=== PATIENT | female | born 1990 | race Caucasian/White ===

== ENCOUNTER 2024-07-24 12:57 | Outpatient (CLI) | payer OTHER, SELFPAY ==
--- NOTE | 2024-07-24 13:00 | CRLHL7_ITS ---
For Patients: As a result of the Century Cures Act, medical imaging exams and procedure reports are released immediately into your electronic medical record. You may view this report before your referring provider. If you have questions, please contact your health care provider. INDICATION: Dating and viability. LMP 05/29/2024. COMPARISON: None. TECHNIQUE: Real-time bowers-scale imaging of the pelvis was performed. FINDINGS: Sonographic imaging demonstrates a single living intrauterine gestation. The embryo has a regular cardiac rate measuring 154 beats per minute. The embryo`s crown-rump length measures 1.6 cm which corresponds to a gestational age of 8 weeks 0 days with sonographic due date 03/05/2025. There is a normal-appearing yolk sac. The placenta has not yet developed. No evidence of a perigestational hemorrhage. The right ovary measures 3.0 x 2.9 x 1.7 cm and the left ovary measures 3.8 x 2.7 x 2.1 cm. There is a 1.9 cm hypoechoic lesion in the left ovary which likely represents a corpus luteum. No free fluid in the pelvic cul-de-sac. IMPRESSION: 1. Single living intrauterine gestation corresponding to an ultrasound gestational age of 8 weeks 0 days with sonographic due date 03/05/2025. 2. The clinical gestational age by LMP is 8 weeks 0 days. Dictated by Amy Roberson MD @ 07/25/2024 2:11:41 AM (Electronically Signed)
== END 2024-07-24 12:58 | disposition home or self-care (01) ==
PROVIDERS: Visit Provider Physician Assistant
DX: Z34.91 Encounter for supervision of normal pregnancy, unspecified, first trimester (principal); Z3A.08 8 weeks gestation of pregnancy
CPT/HCPCS: 76817; 86703; 86706; 86803; 86850; 86900; 86901; 87086; 87340; 87491; 87591

== ENCOUNTER 2024-07-24 13:58 | Outpatient (CLI) | payer OTHER, SELFPAY ==
[2024-07-24 21:40] LABS: Chlamydia DNA Amplified* NOT DETECTED (No Detected); GC DNA Amplified* NOT DETECTED (No Detected)
== END 2024-07-24 13:59 | disposition home or self-care (01) ==
PROVIDERS: Visit Provider Physician Assistant
DX: Z34.91 Encounter for supervision of normal pregnancy, unspecified, first trimester (principal); Z3A.08 8 weeks gestation of pregnancy
CPT/HCPCS: 86592; 86703; 86704; 86706; 86762; 86787; 86803; 86850; 86900; 86901; 87086; 87340; 87491; 87591

== ENCOUNTER 2024-10-18 12:47 | Outpatient (CLI) | payer OTHER, SELFPAY ==
--- NOTE | 2024-10-18 13:00 | CRLHL7_ITS ---
For Patients: As a result of the Century Cures Act, medical imaging exams and procedure reports are released immediately into your electronic medical record. You may view this report before your referring provider. If you have questions, please contact your health care provider. INDICATION: Evaluate anatomy. COMPARISON: 07/24/2024 TECHNIQUE: Real time bowers scale imaging of the fetus was performed as well as color Doppler analysis of the umbilical vessels. FINDINGS: Sonographic imaging demonstrates a single living intrauterine gestation. Fetus demonstrates a regular cardiac rate of 157 beats per minute. Fetus has a vertex position. The placenta lies anteriorly without evidence of placenta previa. Edge of the placenta is located 4.4 cm from the internal cervical os. Amniotic fluid volume appears normal. Single deepest vertical pocket: 5.1 cm. The cervix is closed and measures 4.2 cm in length. The composite ultrasound gestational age is calculated at 21 weeks 0 days with an estimated sonographic due date of 02/28/2025. The estimated weight is 408 grams which lies at the 91st %. The following biometric measurements were obtained: Biparietal diameter: 4.9 cm/20 weeks 6 days 73rd% Head circumference: 17.8 cm/20 weeks 2 days 42nd% Abdominal circumference: 16.3 cm/21 weeks 2 day 78th% Femur length: 3.6 cm/21 weeks 2 days 78th% The HC/AC ratio measures: 1.10 range (1.06-1.25) On anatomic survey, there is a normal appearance of the cerebral ventricles, cavum septi pellucidi, cisterna magna and cerebellum. The nose and lips appear normal. Incomplete visualization of the profile. The cervical, thoracic and lumbar spine are well visualized and appear normal. There is a normal four-chamber heart view and the left and right ventricular outflow tracts appear normal. The diaphragm and stomach appear normal. The kidneys and bladder also appear normal. There is a normal three-vessel cord and there is a marginal cord insertion site into the placenta located 1.7 cm from the placental edge. The four extremities appear normal. Possible echogenic bowel. Placental rivero adjacent to the placental cord insertion. IMPRESSION: Sonographic gestational age 21 weeks 0 days and sonographic due date of 02/28/2025. Sonographic age 5 days ahead of the clinical age. Estimated weight 91st percentile. Abdominal circumference 78th percentile. Incomplete visualization of the profile. Possible echogenic bowel. Short term follow-up or level 2 ultrasound recommended. Remainder of the anatomic survey normal. Marginal cord insertion located 1.7 cm from the placental edge. Placental rivero noted adjacent to the cord insertion. Dictated by Elías Dunbar MD @ 10/19/2024 12:12:12 PM (Electronically Signed)
== END 2024-10-18 12:48 | disposition home or self-care (01) ==
LOC: US 12:48
PROVIDERS: Visit Provider Advanced Practice Midwife
DX: Z34.92 Encounter for supervision of normal pregnancy, unspecified, second trimester (principal); Z3A.21 21 weeks gestation of pregnancy
CPT/HCPCS: 76805

== ENCOUNTER 2024-12-12 11:16 | Outpatient (CLI) | payer OTHER, SELFPAY | END 2024-12-12 11:17 | disposition home or self-care (01) | LOC: NFLDREF 12-17 02:51 | PROVIDERS: Visit Provider Advanced Practice Midwife | DX: Z34.03 Encounter for supervision of normal first pregnancy, third trimester (principal) | CPT/HCPCS: 86592 ==

== ENCOUNTER 2025-02-13 11:32 | Outpatient (CLI) | payer OTHER, SELFPAY | END 2025-02-13 11:33 | disposition home or self-care (01) | LOC: NFLDREF 02-15 09:46 | PROVIDERS: Visit Provider Advanced Practice Midwife | DX: Z34.03 Encounter for supervision of normal first pregnancy, third trimester (principal); Z3A.37 37 weeks gestation of pregnancy | CPT/HCPCS: 87081; 87653 ==

== ENCOUNTER 2025-03-06 10:53 | Outpatient (CLI) | payer OTHER, SELFPAY | END 2025-03-06 10:54 | disposition home or self-care (01) | LOC: NFLDREF 03-11 03:02 | PROVIDERS: Visit Provider Advanced Practice Midwife | DX: O48.0 Post-term pregnancy (principal); Z3A.40 40 weeks gestation of pregnancy | CPT/HCPCS: 87081; 87653 ==

== ENCOUNTER 2025-03-12 11:17 | Outpatient (CLI) | payer OTHER, SELFPAY ==
--- NOTE | 2025-03-12 11:15 | CRLHL7_ITS ---
For Patients: As a result of the Cures Act, medical imaging exams and procedure reports are released immediately into your electronic medical record. You may view this report before your referring provider. If you have questions, please contact your health care provider. OBSTETRICAL ULTRASOUND ??? BIOPHYSICAL PROFILE, 03/12/2025 INDICATION: Post-term . Biophysical profile. CLINICAL HISTORY: LEIGH by LMP: 03/05/2025 Gestational Age: 41 weeks 0 days COMPARISON: 10/18/2024 TECHNIQUE: Real-time bowers-scale imaging of the fetus was performed transabdominal. FINDINGS: Fetus: Single Cervix: Not visualized positioning: Vertex Amniotic Fluid: 7.1 cm SDP BIOPHYSICAL PROFILE: Gross body movements: 2 tone: 2 Respiratory activity: 2 Amniotic fluid SDP: 2 Total score: 8 Placenta technique: Transabdominal Placenta position: Anterior heart rate: 148 bpm COMMENTS: Incidental hydrocele seen on fetus. IMPRESSION: Normal biophysical profile score of 8/8. ELÍAS GRUBBS M.D. Diagnostic Radiologist [email or web address] Transcribed: 5:[address]/Dictated by: Elías Grubbs MD @ 03/12/2025 3:22:00 PM (Electronically Signed)
== END 2025-03-12 11:18 | disposition home or self-care (01) ==
LOC: US 11:18
PROVIDERS: Visit Provider Advanced Practice Midwife
DX: O48.0 Post-term pregnancy (principal); Z3A.41 41 weeks gestation of pregnancy
CPT/HCPCS: 76819

== ENCOUNTER 2025-03-15 11:00 | Outpatient (CLI) | payer OTHER, SELFPAY | END 2025-03-15 11:01 | disposition home or self-care (01) | LOC: NFLDREF 03-19 18:06 | PROVIDERS: Visit Provider Midwife | DX: O48.0 Post-term pregnancy (principal); Z3A.41 41 weeks gestation of pregnancy | CPT/HCPCS: 87081; 87653 ==

== ENCOUNTER 2025-03-15 23:18 | Inpatient (IN) | payer OTHER, SELFPAY ==
[2025-03-15 21:46] VITALS: BMI 31.8
[2025-03-15 21:53] VITALS: PULSE 96; O2SAT 98
[2025-03-15 21:54] VITALS: BP 142/88; PULSE 87
[2025-03-15 22:22] VITALS: BP 133/79; PULSE 90
--- NOTE | 2025-03-15 22:59 | W.PM.LDBA ---
Subjective History of Present Illness Narrative: Patient is being admitted to Labor and Delivery for SROM at term of thin mec. She is a 35 year old at 41 3/7 weeks gestation. Her full history and physical was dictated by Amalia John on 02/20/25. Please see this for details. SROM at 1700 clear fluid with green tint noted at 1900. Contractions have not picked up at all. Good movement. Specific Issues/Plans G1 P 0 Partner: Shar?It is a boy! H&P completed by Whitney John CNM on 02/20/25? ? #echogenic bowel: MFM consult/Lev 2 f/u referral sent 10/18. Declines US follow-up, aware of risk Did have 3D/4D US and they did not see anything on bowel, she has low concern for this Offered genetic screening: declines #Marginal cord insertion (EFW at 20 weeks, 91%). 1.7cm so not marginal per definition Growth US at 28: declines Growth US at 34: planning at this time; 3/ discussed via phone and patient actually elects to decline # Hx abnormal paps. Normal in 2023, due in 2026. # Hx migraines # Low plts at 28 weeks, 134 Repeat CBC at 34 weeks and on admit 01/16/25-134 # Hydrocele noted on last US. Not discussed with pt. Please inform her on admit for IOL. ? Imaging:? 1st trimester: 07/24/2024: SLIUP consisted with dating?? Anatomy scan: 10/18/2024: US shows echogenic bowel, marginal cord insertion, hypoechoic area in placenta adjacent to cord insertion site and profile was not visualized. Will schedule in the new year when deductible will be lower since thay are not covering any US so far. Others: NA? ? COVID:?? Flu:??? Tdap:? RSV:?declines 32wk Mental Health:? 34wk hgb:12.3 on 01/16/25 ? OB - Problem Based A/P Additional Plan (1) SROM (spontaneous rupture of membranes): Status: Acute (2) Thin meconium stained amniotic fluid: Status: Acute (3) Post term at 41 weeks gestation: Status: Acute (4) Low platelet count: Status: Acute (5) Echogenic bowel of fetus on ultrasound: Status: Acute (6) Marginal insertion of umbilical cord affecting management of mother: Problem details: 1.7cm from OS. Not marginal. Status: Acute Plan ASSESSMENT:?? 35 at 41 3/7 weeks gestation?? complicated by:??marginal cord insertion, echogenic bowel that was later not seen. low platelets 134 Labor type: SROM augmented, Thin mec, post dates, not yet in labor?? Category 1 FHR pattern.??? Labor complicated by: thin mec?? GBS negative ?? PLAN:?? 1. Routine intrapartum cares as ordered. Reviewed increased risk of infection with ROM, thin meconium causes, recommendation to augment labor since it has already been 6 hours after ROM with labor onset. Recommendation for some ripening based on exam to include oral misoprostol reviewed with progression to pitocin prn. Hortensia and Shra agree to oral misoprostol and have no further questions at this time. 2. Monitoring per policy, continuous? 3. Planning unmedicated . Desires water . Consent signed. Hep C negative. Candidate for analgesia of choice.??? 4. Patient encouraged to reposition and ambulate to promote physiologic labor and .??? 5. IV site Saline lock, CBC on admit 6. RNs instructed to NOT check patient's cervix prior to misoprostol dose due to increased risk of infection. They may check if patient is having painful contractions, but should defer them when not medically necessary whenever able to safely do so. 7. Anticipate ? Delivery/Labor/Induction Plan Plan: induction Induction method: per misoprostol protocol OB Exam Physical Exam Vital signs: Pulse BP Pulse Ox 90 133/79 98 03/15/25 22:22 03/15/25 22:22 03/15/25 21:53 Narrative: Vitals Reviewed Constitutional:? Alert and oriented x3 HEENT:? Normocephalic, atraumatic Neck:? Supple Lungs:? Clear to auscultation bilaterally Heart:? Regular rate and rhythm, no murmur, rub or gallop Abdomen:? Soft, nontender, and gravid. Vertex by Douglas's, confirmed with cervical exam. Extremities:? No edema or erythema Cervix: deferred due to ROM and and significant contractions, assume same exam as clinic eval earlier today. 2/70/-3 NST: 140 bpm/moderate variability/accelerations present/decelerations absent/ irregular occasional mild contractions
[2025-03-15 23:47] LABS: Basophils Percent Auto 0.1 % (0.0-3.0); Eosinophils Percent Auto 0.7 % (0.0-7.0); Hematocrit 37.6 % (33.0-51.0); Hemoglobin* 13.1 gm/dL (12.0-16.0); Immature Granulocytes Pct Auto 1.6 %; Lymphocytes Percent Auto 11.8 % (20-44); Mean Corpuscular HGB Conc 35 gm/dL (32-36); Mean Corpuscular Hemoglobin 31 pg (26-34); Mean Corpuscular Volume 89 fL (80-100); Monocytes Percent Auto 5.5 % (0.0-11.0); Neutrophils Percent Auto 80.3 % (42.0-72.0); Platelet Count* 158 K/uL (140-440); RDW Coefficient of Variation % 12.6 % (11.5-15.5); Red Blood Count 4.23 m/uL (4.00-5.20); White Blood Count* 11.97 K/uL (4.50-11.00)
[2025-03-15 23:49] LABS: Slide Review Reflex No
[2025-03-15] MEDS: miSOPROStoL 25 MCG/0.25 TABLET PO (23:58)
[2025-03-16] VITALS (83 sets, daily range): BP systolic 98–141; BP diastolic 54–87; PULSE 89–155; RESP 16–18; TEMP 36.4–39.1; O2SAT 88–100
[2025-03-16] MEDS: miSOPROStoL 25 MCG/0.25 TABLET PO ×2 (02:08→04:10)
--- NOTE | 2025-03-16 08:34 | P.OBPN_ITS ---
Subjective Date Seen: 03/16/25 Narrative: Hortensia received 3 doses of oral Cytotec. Around 0600 she began aarti regularly and they have gradually increased in intensity and frequency. She is coping well with upright positions and movement. Breathing through contractions but mostly able to talk during them. She is supported by her . We discussed the option of a SVE but she declines at this time. Discussed that since she is aarti more regularly it would not change the plan of care at this time. Can consider if not continuing to progress in 5-6 hours. Encouraged labor warm up, position changes, upright positions, hydrotherapy PRN, and rest if able. Meconium on the pads if currency scant amount of lightly stained fluid. Ok for intermittent auscultation with intermittent monitoring every 2 hours. Will return to continuous monitoring if meconium staining increases. Objective Vital Signs: Last Vital Signs Temp 98.5 F 03/16/25 07:18 Pulse 94 03/16/25 06:17 Resp 16 03/16/25 06:17 BP 120/83 03/16/25 06:17 Pulse Ox 98 03/15/25 21:53 Contractions Monitor mode: External Contraction Frequency: 1-3 with some coupling Contraction pattern: Regular Contraction intensity: Moderate Assessment Assessment: early labor Amniotic Membrane Status: SROM Status: Category l Heart Rate Baseline: 130 Pharmacy Clinical Coordinator Variability: Moderate (6-25) Monitor Accelerations: Present Monitor Decelerations: None Plan Plan: ASSESSMENT:?? 35 at 41 4/7 weeks gestation?? complicated by:??marginal cord insertion, echogenic bowel that was later not seen. low platelets 134 Labor type: SROM augmented, Thin mec, post dates, early labor Category 1 FHR pattern.??? Labor complicated by: thin mec?? GBS negative ?? PLAN:?? 1. Routine intrapartum cares as ordered. Reviewed increased risk of infection with ROM, thin meconium causes again reviewed. Regular contractions now present so expectant management at this time. 2. Monitoring per policy, intermittent auscultation per policy with intermittent monitoring every 2 hours or more frequently if warranted or condition changes. ? 3. Planning unmedicated . Desires water . Consent signed. Hep C negative. Candidate for analgesia of choice.??? 4. Patient encouraged to reposition and ambulate to promote physiologic labor and .??? 5. IV site Saline lock 6. RNs instructed to limit SVEs due to increased risk of infection unless medically necessary or discussed with CNM first. 7. Anticipate ?
--- NOTE | 2025-03-16 13:18 | P.OBPN_ITS ---
Subjective Date Seen: 03/16/25 Narrative: Hortensia continues to labor.Contractions have been feeling more intense per her report and some vocalization was noted by the RN. Offered a SVE at this time which she desired. She was found to be 2.5cm/90%/-2. She has been using frequent position changes as well as hydrotherapy for labor coping and is supported by her partner. Encouraged her to continue position changes to assist in descent and positioning. Continues to have a small amount of mostly thin mec stained fluid and now has occasional scant bloody show. 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 35 at 41 4/7 weeks gestation?? complicated by:??marginal cord insertion, echogenic bowel that was later not seen. low platelets 134 Labor type: SROM augmented, Thin mec, post dates, early labor Category 1 FHR pattern.??? Labor complicated by: thin mec?? GBS negative ?? PLAN:?? 1. Routine intrapartum cares as ordered. Reviewed increased risk of infection with ROM, thin meconium causes again reviewed. Regular contractions now present so expectant management at this time. 2. Monitoring per policy, intermittent auscultation per policy with intermittent monitoring every 2 hours or more frequently if warranted or condition changes. ? 3. Planning unmedicated . Desires water . Consent signed. Hep C negative. Candidate for analgesia of choice.??? 4. Patient encouraged to reposition and ambulate to promote physiologic labor and .??? 5. IV site Saline lock 6. RNs instructed to limit SVEs due to increased risk of infection unless medically necessary or discussed with CNM first. 7. Anticipate ?
[2025-03-16] MEDS: LACTATED RINGERS 1000 ML 1,000 ML 500 ML IV (15:16)
--- NOTE | 2025-03-16 15:19 | P.OBPN_ITS ---
Subjective Date Seen: 03/16/25 Narrative: Hortensia is getting more uncomfortable and has been using nitrous. She is considering an epidural and is requesting a SVE before deciding. On exam she is found to be 5.5cm and stretches easily to 6cm. She would like to proceed with an epidural placement at this time. Continues to have scant light stained meconium fluid and did have bloody show with the SVE. VSS and remains afebrile. 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 35 at 41 4/7 weeks gestation?? complicated by:??marginal cord insertion, echogenic bowel that was later not seen, low platelets in 134 (158 on admission) Labor type: SROM augmented, Thin mec, post dates, early labor Category 1 FHR pattern.??? Labor complicated by: thin mec, prolonged ROM (>20 hours)? GBS negative ?? PLAN:?? 1. Routine intrapartum cares as ordered. Increased risk of infection with prolonged ROM, thin meconium. Regular contractions with cervical change, expectant management at this time. 2. Monitoring per policy, will be continuous monitoring with epidural placement. 3. Requesting epidural placement at this time. 4. Encouraged and assist patient to reposition in bed to promote physiologic labor and .??? 5. IV is in place for epidural placement. 6. RNs instructed to limit SVEs due to increased risk of infection unless medically necessary or discussed with CNM first. 7. Anticipate .?
[2025-03-16] MEDS: LIDOCAINE 2% (PF) 5 ML VIAL EPIDURAL (15:53)
[2025-03-16] MEDS: ROPIVACAINE 0.2% 100 ml 100 ML 12 MG EPIDURAL ×2 (15:57→23:49)
[2025-03-16] MEDS: LACTATED RINGERS 1000 ML 1,000 ML 125 ML IV (17:23)
--- NOTE | 2025-03-16 18:14 | P.ANBPRC_ITS ---
[facility] Medical History (Updated 03/16/25 @ 00:32 by Kanchan Lozoya CNM) Marginal insertion of umbilical cord affecting management of mother ?O43.199 - Other malformation of placenta, unspecified trimester (ICD-10) History of abnormal cervical Pap smear ?Z87.42 - Personal history of other diseases of the female genital tract (ICD-10) Migraine ?G43.909 - Migraine, unspecified, not intractable, without status migrainosus (ICD-10) Surgical History History of colposcopy with cervical biopsy ?Z98.890 - Other specified postprocedural states (ICD-10) History of wisdom tooth extraction ?K08.409 - Partial loss of teeth, unspecified cause, unspecified class (ICD- 10) Family History Maternal Grandmother Colon cancer Social History Narrative: 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 Marital status: . Quaker/cultural needs: no. Chemical or radiation exposure: no. Pre- tobacco use: no. Pre- alcohol use: 0-1 per day. Current tobacco use: no. Current alcohol use: no. Recreational drug use: no. Dietary restrictions: no. Blood transfusion acceptable in an emergency: yes. PSYCHOSOCIAL HISTORY: History of depression or currently depressed: Denies. Current or past physical, emotional, or sexual mistreatment: Denies. Problems that will make it hard to make it to appointments: Denies. What is your current living situation?: I presently have a place to live Problems where you live: no known problems In the past 12 months, utilities in danger of being shut off: no In past 12 months, lack of transportation kept you from medical appts, meetings, work, or getting things needed for daily living: no In the past 12 mos, have been you worried that your food would run out before you had money to buy more?: never true In the past 12 mos, the food you bought just didn't last and you didn't have money to buy more?: never true Smoking Status: Never smoker How often does anyone, including family, friends and others, physically hurt you : never How often does anyone, including family, friends and others, insult or talk down to you: never How often does anyone, including family, friends and others, threaten you with harm: never How often does anyone, including family, friends and others, scream or curse at you: never Meds Home Medications and Allergies Home Medications ?Medication ?Instructions ?Recorded ?Confirmed ?Type [id number] 3-fat com #1 27 1 cap PO DAILY 07/24/24 03/16/25 History mg-1 mg-300 mg capsule psyllium husk 0.4 gram capsule 0.4 g PO ONCE PRN 10/18/24 03/16/25 History (Daily Fiber) Allergies Allergy/AdvReac Type Severity Reaction Status Date / Time No Known Drug Allergies Allergy Verified 03/15/25 11:03 Results Labs Labs: Laboratory Results - last 24 hr 03/15/25 23:41 WBC 11.97 H RBC 4.23 Hgb 13.1 Hct 37.6 MCV 89 MCH 31 MCHC 35 RDW Coeff of Sarina 12.6 Plt Count 158 Neut % (Auto) 80.3 H Lymph % (Auto) 11.8 L [place] % (Auto) 5.5 Eos % (Auto) 0.7 Baso % (Auto) 0.1 Neut # (Auto) 9.60 H Lymph # (Auto) 1.40 [place] # (Auto) 0.70 Eos # (Auto) 0.10 Baso # (Auto) 0.00 Abs Immat Gran (auto) 0.20 Imm/Tot Granulo (auto) 1.6 Vital Signs Vital Signs: Last Vital Signs Temp 98.6 F 03/16/25 17:43 Pulse 106 H 03/16/25 18:14 Resp 16 03/16/25 13:20 BP 102/57 L 03/16/25 18:14 Pulse Ox 88 03/16/25 16:38 Weight: 86.636 kg Height: 165.1 cm Anesthesia Procedures Epidural Insertion Patient Location: OB Start Time: 15:15 Stop Time: 16:00 Start Date: 03/16/25 Stop Date: 03/16/25 Reason for Block: procedure for pain Patient Position: sitting Performed By: Bialee Kent Preanesthetic Checklist: IV checked, site marked, risks and benefits discussed, monitors and equipment checked, pre-op evaluation, timeout performed and anesthesia consent Prep: chlorhexidine gluconate Monitoring: blood pressure monitoring, continuous pulse oximetry and heart rate Approach: midline Vertebral Space: lumbar (1-5) Epidural Technique: DONATO saline Needle Type: Tuohy needle Injection Technique: continuous catheter Needle gauge: 17 Needle Length (cm): 10 cm Needle Insertion Depth (cm): 6 Catheter Gauge: 19 Catheter Type: multi-orifice Catheter at skin depth (cm): 16 Test Dose Result: negative and lidocaine 1.5% with epinephrine 1 to 200,000
[2025-03-16] MEDS: OXYTOCIN 30 unit/500 ML in NS 30 UNIT/500 ML BAG IVPB (18:22)
[2025-03-16] MEDS: AMPICILLIN 2 GM in 0.9 % SODIUM CHLORIDE Mini-bag 100 ML IVPB (22:46)
[2025-03-16] MEDS: GENTAMICIN IVPB (23:16)
[2025-03-16] MEDS: SODIUM CHLORIDE 0.9% IVPB (23:16)
[2025-03-17] VITALS (45 sets, daily range): BP systolic 95–180; BP diastolic 52–89; PULSE 80–150; RESP 16–19; TEMP 36.3–39.3; O2SAT 96–100
--- NOTE | 2025-03-17 | P.OBCN_ITS ---
OB - CN: HPI Date of Consult Date Seen: 03/17/25 Patient: [facility] Patient Consult date: 03/17/25 Requesting Physician: Leandra Delcid CNM Primary Care Provider: Not a Local Provider Consult Narrative Narrative: The patient is a 35 year old G 1 P 0 woman at 41 weeks, 5 days gestation that was admitted to the Center on 03/15/25 for ruptured membranes. She is cared for by the process engineering intern team. She had rupture membranes at 5:00 p.m. on 03/15/2025. Green tinted fluid was noted. She had last had a cervical exam earlier that day, and was found to be 2 cm dilated, 70% effaced and-3 station at that time. She was not aarti regularly. Based on her exam prior to admission, she was given oral misoprostol for cervical ripening. She received 3 total doses. She then began having regular contractions at 6:00 a.m. on 03/16/2025. She had her 1st cervical exam at 12:36 p.m. on 03/16/2025 and found to be 2.5 cm, 90% effaced and -2 station. She continued to labor without any Pitocin augmentation. She was rechecked at 3 2:00 p.m. and found to be 5.5 cm, 90% -2 station. Thereafter, she had an epidural for pain control. She was found to be 7.5 cm and-1 station at 4:27 p.m.. Pitocin was started at 6:22 p.m. and continues at this time. She subsequently progressed to complete dilation and began pushing at 9:45 p.m.. She has been pushing with good effort since that time. Unfortunately, she developed fever of 102 and heart rate baseline increased to 170 beats per minute around 11:00 p.m.. Chorioamnionitis in the setting of prolonged rupture membranes was diagnosed, and she was started on ampicillin and gentamicin for treatment. I was consulted in her care by Leandra Delcid CNM, and evaluated the patient at 11:30 p.m.. Currently, Hortensia is feeling very tired and overwhelmed. She is having pain despite epidural. She is pushing on her back in a slightly reclined position. Her history is otherwise as noted in her H&P. She has not had US for growth in recent history; EFW was 91% on anatomy scan in 2nd trimester. History History 1 Elective abortions Para 0 Spontaneous abortions Hx # Term Pregnancies Ectopic pregnancies Hx # Pregnancies Multiple births Number of Living Children 0 Labs GBS status: negative OB Labs: Lab Assessment Start: 03/15/25 21:43 Freq: ONCE Status: Active Protocol: PC.OBGBS Activity Type Activity Date Activity User E-sign Co-sign Detail Recorded Client Recorded Date Recorded By Document 03/15/25 21:46 SRV No Response 03/15/25 22:02 SRV 03/15/25 21:46 Lab Assessment GBS Status negative GBS Additional Criteria None No Treatment Needed OK Are Labs Available Yes Maternal Blood Type A Maternal RH Factor Positive Evaluate Maternal Rubella Immune Status Immune Hepatitis B Surface Antigen Negative Maternal HIV Status Negative Maternal Syphillis (RPR) Status Negative [facility] Medical History (Updated 03/16/25 @ 00:32 by Kanchan Lozoya CNM) Marginal insertion of umbilical cord affecting management of mother ?O43.199 - Other malformation of placenta, unspecified trimester (ICD-10) History of abnormal cervical Pap smear ?Z87.42 - Personal history of other diseases of the female genital tract (ICD-10) Migraine ?G43.909 - Migraine, unspecified, not intractable, without status migrainosus (ICD-10) Surgical History History of colposcopy with cervical biopsy ?Z98.890 - Other specified postprocedural states (ICD-10) History of wisdom tooth extraction ?K08.409 - Partial loss of teeth, unspecified cause, unspecified class (ICD- 10) Family History Maternal Grandmother Colon cancer Social History Narrative: 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 Marital status: . Buddhism/cultural needs: no. Chemical or radiation exposure: no. Pre- tobacco use: no. Pre- alcohol use: 0-1 per day. Current tobacco use: no. Current alcohol use: no. Recreational drug use: no. Dietary restrictions: no. Blood transfusion acceptable in an emergency: yes. PSYCHOSOCIAL HISTORY: History of depression or currently depressed: Denies. Current or past physical, emotional, or sexual mistreatment: Denies. Problems that will make it hard to make it to appointments: Denies. What is your current living situation?: I presently have a place to live Problems where you live: no known problems In the past 12 months, utilities in danger of being shut off: no In past 12 months, lack of transportation kept you from medical appts, meetings, work, or getting things needed for daily living: no In the past 12 mos, have been you worried that your food would run out before you had money to buy more?: never true In the past 12 mos, the food you bought just didn't last and you didn't have money to buy more?: never true Smoking Status: Never smoker How often does anyone, including family, friends and others, physically hurt you : never How often does anyone, including family, friends and others, insult or talk down to you: never How often does anyone, including family, friends and others, threaten you with harm: never How often does anyone, including family, friends and others, scream or curse at you: never Meds Home Medications and Allergies Home Medications ?Medication ?Instructions ?Recorded ?Confirmed ?Type [id number] 3-fat com #1 27 1 cap PO DAILY 07/24/24 03/16/25 History mg-1 mg-300 mg capsule psyllium husk 0.4 gram capsule 0.4 g PO ONCE PRN 10/18/24 03/16/25 History (Daily Fiber) Allergies Allergy/AdvReac Type Severity Reaction Status Date / Time No Known Drug Allergies Allergy Verified 03/15/25 11:03 OB - H&P: Exam Physical Exam: Vital signs: Temp Pulse Resp BP Pulse Ox 98.0 F 127 H 18 135/62 96 03/16/25 20:00 03/16/25 23:28 03/16/25 20:00 03/16/25 23:28 03/16/25 23:59 Narrative: Physical exam: Vitals as noted above. General: No acute distress Psych: Alert and oriented x 3, full affect HEENT: Normocephalic, atraumatic Abdomen: soft, nontender, gravid, back to maternal right. By Douglas's, fetus seems to be only around 8 lbs Pelvic exam: complete dilation. While caput is visible with parting of maternal labia with contractions, station is actually 0. Transverse orientation was suspected on exam. tracing: Baseline currently 165 / accelerations present / recurrent, brief variable decelerations with contractions / moderate variability. Contractions Q 2 minutes. Bedside US performed, showing fetus in direct OP presentation. Procedure note: Manual rotation of head I discussed this option with the patient as a way to attempt to effectuate descent of head. Verbal consent obtained. With my entire examining hand inserted, I elevated vertex out of the pelvis. Elevation was not difficult to accomplish, but I was poorly able to rotate head; ultimately, I was able to rotate around 45 degrees counterclockwise during her push. Patient tolerated this attempt with great difficulty. OB - CN: A/P Assessment and Plan (1) SROM (spontaneous rupture of membranes): Status: Acute (2) Thin meconium stained amniotic fluid: Status: Acute (3) Post term at 41 weeks gestation: Status: Acute (4) Low platelet count: Status: Acute (5) Echogenic bowel of fetus on ultrasound: Status: Acute (6) Marginal insertion of umbilical cord affecting management of mother: Problem details: 1.7cm from OS. Not marginal. Status: Acute Plan OP presentation in 2nd stage. 2nd stage currently normal length. Chorioamnionitis in the setting of prolonged ROM. Diagnosed based on temp elevation to 102 F and tachycardia. Currently treated with ampicillin and gentamicin and afebrile on most recent check. Category 2 tracing, overall reassuring Meconium-stained amniotic fluid. For labor management: She is not a candidate for operative vaginal at this time due to station. Manual rotation was attempted but I do not think I was able to rotate head; rather, I was able to destation head. Should labor progress well after this point with obvious descent of head, no further intervention is needed. If there is no obvious descent over the course of an hour, I recommend for management of arrest of descent. For maternal status: agree with ampicillin and gentamicin. Will add clindamycin and azithromycin if becomes necessary. For status: Continuous monitoring. As variability is moderate and variable decelerations are brief and shallow, we do not need to intervene for benefit so long as descent continues as exptected. Recommendations discussed with Leandra Delcid CNM Total Time Spent Total time spent: 45 min
--- NOTE | 2025-03-17 00:17 | PM.OBPNL ---
Subjective Time Seen by Provider: 00:15 Date Seen: 03/17/25 Narrative: Hortensia requested and received an epidural for analgesia and was able to rest some with that in place. She was feeling comfortable. Contractions did space out after epidural placement so Pitocin augmentation was discussed and Hortensia was agreeable to. She was found to be complete and started pushing around 2145 and pushed in many different positions. She was seeming to make progress. Around 2230 she felt warm and temperature was found to be 102.[]. Antibiotics were initiated and peds was notified. [facility] after that patricia from the 150-160's to the 170's but did have good variability. She did have some variables with pushing. The OB was called to consult around [] for increased heart rate and position as progress was slowing with maternal exhaustion. Bedside US confirmed OP position and a manual rotation was attempted. See Dr. Barahona's note for details. She was very uncomfortable with this attempt. She began pushing again immediately after this attempt. Anesthesia was called to rebolus and adjust the epidural. Will continue to active pushing after epidural rebolus. Objective Vital Signs: Last Vital Signs Temp 98.0 F 03/16/25 20:00 Pulse 127 H 03/16/25 23:28 Resp 18 03/16/25 20:00 BP 135/62 03/16/25 23:28 Pulse Ox 96 03/16/25 23:59 Pelvic Exam Dilation (cm): 10 Effacement (%): 100 Station: +1 Contractions Monitor mode: External Contraction Frequency: 1-3 min Contraction pattern: Regular Contraction intensity: Strong/Firm Pitocin Rate (mU/min): 3 Assessment Assessment: other (second stage ongoing ) Station: +1 Amniotic Membrane Status: SROM Status: Category l Heart Rate Baseline: 170 Correction Variability: Moderate (6-25) Monitor Accelerations: Present Monitor Decelerations: Variable Plan Plan: ASSESSMENT:?? 33 at 41 5/7 weeks gestation?? complicated by:??marginal cord insertion, echogenic bowel that was later not seen, low platelets in 134 (158 on admission) Labor type: SROM augmented, Thin mec, post dates, early labor Category 2 FHR pattern with variable decelerations.??? Labor complicated by: thin mec, prolonged ROM (>30 hours)? GBS negative ?? PLAN:?? 1. Routine intrapartum cares as ordered. 2. Chorioamnionitis with elevated temperature and FHR. Clindamycin and Ampicillin treatment initiated. Will consider Tylenol if elevated temperature persists. Peds made aware. 3. Dr. Barahona consults for FHR and position. Internal rotation attempted but uncertain success. 4. Continuous monitoring per policy. 5. Epidural in place. BARROW WORKER HELPER assessing for bolus. 6. Encouraged and assist patient to reposition with RN assistance in bed to promote physiologic labor and .?? 7. Continue Pitocin augmentation per policy.? 8. Anticipate .?
[2025-03-17] MEDS: ACETAMINOPHEN 500 MG TABLET 1000 MG PO ×3 (00:46→18:39)
[2025-03-17] MEDS: fentaNYL 100 MCG/2 ML inj EPIDURAL (00:46)
[2025-03-17] MEDS: LIDOCAINE 2% (PF) 5 ML VIAL EPIDURAL (00:46)
[2025-03-17] MEDS: AZITHROMYCIN 500 MG in 0.9 % SODIUM CHLORIDE 250 ml 250 ML 255 MG IVPB (01:25)
[2025-03-17 01:30] LABS: Hemoglobin* 11.6 gm/dL (12.0-16.0)
[2025-03-17] MEDS: CLINDAMYCIN 900 MG/50 ML-D5W 900 MG/50 ML PIGGYBACK 100 MG IVPB ×2 (02:16→10:03)
[2025-03-17] MEDS: KETOROLAC 30 MG/ML inj IVP ×4 (03:19→21:15)
--- NOTE | 2025-03-17 03:47 | PM.OBPRCCS ---
Procedure Date of procedure: 03/17/25 Pre-op diagnosis: Arrest of descent Chorioamnionitis in the setting of prolonged rupture of membranes Post-op diagnosis: same Procedure Done: Global Will [facility] bill your pro fee for this procedure?: Yes Blood Loss Measurement Type: QBL (1100 mL) Bakri Used: No IV fluids (mL): 1,100 Urine Output (mL): 400 Surgeon: Cari Barahona MD Findings: 1. Male infant, cephalic OP presentation, thick meconium stained fluid, Apgars of 8 & 9, weight 3755 g. 2. Hysterotomy extension downward from the right hysterotomy angle, leading to intraoperative hemorrhage of 1100 mL. Otherwise normal appearance of uterus, tubes and ovaries. Procedure Name: Primary low-transverse delivery Procedure Description: Patient was taken to the operating room with IV running. She had been treated with ampicillin and gentamicin for chorioamnionitis. She was, in addition, given clindamycin and azithromycin in preoperative prophylaxis. Prior to preparation of the abdomen, I performed another vaginal exam, and lifted the vertex as much as possible. Epidural anesthesia had previously been administered. Grant catheter was inserted. She was prepped and draped in the usual sterile fashion. Anesthesia was tested and found to be adequate. A low-transverse skin incision was made with a scalpel and carried through to the underlying layer of fascia with the scalpel. The subcutaneous fat was dissected off the underlying fascia with Bovie. The fascia was nicked in the midline with a scalpel, and this incision was extended laterally with scissors. The fascia was dissected off the underlying rectus muscles sharply. The rectus muscles were in the midline. Peritoneum was identified and entered bluntly. Bovie was used to widen this opening laterally. Shawn O retractor was inserted and tightened down, providing excellent visualization of the lower uterine segment. The bladder reflection was advanced along the lower uterine segment. A bladder flap was created with a combination of sharp and blunt dissection. Low-transverse uterine incision was made with a scalpel. Incision was widened bluntly. The infant's head was grasped through the hysterotomy and delivered with the help of fundal pressure. The remainder of the body delivered without incident. Cord was clamped and cut after 30 seconds. was handed off to attending nurses. The placenta was delivered with gentle traction on the cord. The uterus was exteriorized and cleaned of all clots and debris with the dry lap pad. The hysterotomy was reapproximated with 0 Vicryl in a running, locked fashion. There was profuse bleeding noted from the extension along the right hysterotomy angle. The edges of the hysterotomy were initially addressed with a running, locked suture of 0 Vicryl, until the angle was reached. The bladder was further dissected downward along the lower uterine segment to enable visualization. There were obviously disrupted portions of the uterine artery in this area. These were initially addressed with reapproximation of the hysterotomy extension, and then with a few more [id number] sutures. Second layer of the same suture was used in imbricating fashion to obtain hemostasis in the rest of the hysterotomy. The adnexa were examined and noted to be normal in appearance. The cul-de-sac and gutters were irrigated with sterile saline, and dampened laparotomy sponge was used to remove clots and debris. The uterus was returned to the abdomen. The hysterotomy was reexamined and hemostasis again noted. The Shawn O retractor was removed. The hysterotomy was again reexamined and found to be hemostatic. The peritoneum was reapproximated with 2 0 Vicryl in a running fashion. The rectus muscles were examined and found to be hemostatic. The fascia was reapproximated with 0 Vicryl in a running fashion. Subcutaneous fat was irrigated and Bovie used on oozing vessels. The subcutaneous fat was reapproximated with 2 0 plain gut suture in an interrupted fashion. The skin was closed with a subcuticular stitch of 4-0 Monocryl. Surgical glue was applied above this. Patient tolerated procedure well was taken to recovery area in stable condition. Complications: Hysterotomy extension downward from the right hysterotomy angle, leading to intraoperative hemorrhage of 1100 mL. Pathology: specimen obtained, sent to pathology (Placenta) Surgery Debrief Performed: Yes Surgery Debrief Comment: Postoperative debrief was verbalized with OR staff, including a verification of pathology specimens to be sent as described above. Condition: stable Disposition: floor
--- NOTE | 2025-03-17 04:14 | W.PM.NB ---
Nerve Block Nerve Block Time Seen by Provider: 03:35 Date Seen: 03/17/25 Type of block requested by surgeon for post-operative analgesia: TAP Side: bilateral Time out performed: Yes Verification of patient name: Yes Verification of date of : Yes Site marking: site marked Name of person performing procedure: Bailee Kent Continuous monitoring Was continuous monitoring of O2 sat, B/P, laboratory monitor, recorded every 15 minutes?: Yes Procedure Checklist: sterile prep, needles and gloves Ultrasound guided. Images saved: Yes Medications given in 5ml increments after negative aspiration: Marcaine %: 0.25 mL: 30 Needle gauge: 20 and Exparel mL: 10 Needle gauge: 20 Patient tolerated procedure well: Yes Block Charges Block Charge (with Pro Fee): TAP Bilateral Use of Ultrasound Machine for Block: Yes- US Guidance/pain block
--- NOTE | 2025-03-17 04:15 | P.ANES_ITS ---
Anesthesia Charges Start Date/Time Anesthesia Start Date: 03/17/25 Anesthesia Start Time: 02:02 Stop Date/Time Anesthesia Stop Date: 03/17/25 Anesthesia Stop Time: 03:59 Summary Emergency: MINE SURVEYOR Coding CPT Codes CPT Codes: ANES/ANALG CS DELIVER ADD-ON - 36472 ([id number]) P2 - PATIENT W/MILD SYST DISEASE, QZ - MINE SURVEYOR SVC W/O MANAGER PRESENTATION BY Additional Codes: Summary - Emergency: MINE SURVEYOR ([id number])
--- NOTE | 2025-03-17 04:15 | W.ANESCHARGE ---
Anesthesia Charges Start Date/Time Anesthesia Start Date: 03/17/25 Anesthesia Start Time: 02:02 Stop Date/Time Anesthesia Stop Date: 03/17/25 Anesthesia Stop Time: 03:59 Summary Emergency: RADIO INTELLIGENCE OPERATOR Coding CPT Codes CPT Codes: ANES/ANALG CS DELIVER ADD-ON - 50424 ([id number]) P2 - PATIENT W/MILD SYST DISEASE, QZ - RADIO INTELLIGENCE OPERATOR SVC W/O KENNEL OPERATOR BY Additional Codes: Summary - Emergency: RADIO INTELLIGENCE OPERATOR ([id number])
[2025-03-17] MEDS: LOPERAMIDE HCL 2 MG CAPSULE 4 MG PO (04:42)
[2025-03-17] MEDS: AMPICILLIN 2 GM in 0.9 % SODIUM CHLORIDE Mini-bag 100 ML IVPB ×2 (05:25→11:27)
[2025-03-17 07:26] LABS: Hematocrit 31.8 % (33.0-51.0); Immature Granulocytes Pct Auto 1.1 %; Lymphocytes Percent Auto 1.7 % (20-44); Mean Corpuscular HGB Conc 35 gm/dL (32-36); Mean Corpuscular Hemoglobin 31 pg (26-34); Mean Corpuscular Volume 89 fL (80-100); Monocytes Percent Auto 3.8 % (0.0-11.0); Neutrophils Percent Auto 93.4 % (42.0-72.0); Platelet Count* 135 K/uL (140-440); RDW Coefficient of Variation % 12.7 % (11.5-15.5); Red Blood Count 3.57 m/uL (4.00-5.20)
[2025-03-17 07:56] LABS: Slide Review Acceptable Review (Acceptable); Slide Review Reflex Yes; White Blood Count* 29.77 K/uL (4.50-11.00)
--- NOTE | 2025-03-17 09:19 | PM.OBPNVD1 ---
OB - PN:Subj Subjective Time Seen by Provider: 09:19 Date Seen: 03/17/25 Patient comments OB post-: pain well controlled and tolerating diet status: feeding status: exclusively Narrative: S: Hortensia is day of delivery from a primary low-transverse for arrest of descent. Labor complicated by prolonged rupture of membranes, thick meconium stained amniotic fluid and chorioamnionitis with a maximum temperature of 102.7? F at 12:46 a.m. she has been afebrile since delivery. She was receiving ampicillin and gentamicin in labor and received gentamicin after delivery. Ordered an additional dose of amp, Gent and clinda for after delivery due to chorioamnionitis. Her white blood cell count this morning was 29.97 with a left shift consistent with infection. Another CBC with differential was ordered for tomorrow morning to monitor trend. Plan to restart antibiotics if the patient spikes another fever and continue antibiotics until she is 24 hours afebrile. She states her pain is under good control. She states she feels exhausted but otherwise doing ?okay?. SCDs are in place. Grant catheter is in place. She is . She is not passing flatus. OB - PN: Obj Exam Physical Exam: Vital signs: Temp Pulse Resp BP Pulse Ox O2 Del Method 99.0 F 93 16 95/65 99 Room Air 03/17/25 05:30 03/17/25 06:30 03/17/25 08:45 03/17/25 06:30 03/17/25 05:30 03/17/25 04:30 Narrative: General: Tired-appearing, woman in no acute distress. Vital signs: Included in her electronic medical record. Heart: Regular rate and rhythm without gallop, rub or murmur. Chest: Clear to auscultation bilaterally. Abdomen: Soft, nontender and nondistended with normal bowel sounds throughout. Fundus firm at the umbilicus in the midline. Incision: Dressing is clean, dry and intact. Extremities: SCDs are in place. No pain. Edema: +1 bilateral lower extremities to the ankle. OB - PN: Obj Data Labs Labs: Laboratory Results - last 24 hr 03/17/25 03/17/25 01:27 07:05 WBC 29.77 H* RBC 3.57 L Hgb 11.6 L 11.0 L Hct 31.8 L MCV 89 MCH 31 MCHC 35 RDW Coeff of Sarina 12.7 Plt Count 135 L Neut % (Auto) 93.4 H Lymph % (Auto) 1.7 L [place] % (Auto) 3.8 Eos % (Auto) 0.0 Baso % (Auto) 0.0 Neut # (Auto) 27.80 H Lymph # (Auto) 0.50 L [place] # (Auto) 1.10 H Eos # (Auto) 0.00 Baso # (Auto) 0.00 Abs Immat Gran (auto) 0.30 Imm/Tot Granulo (auto) 1.1 Diff Slide Review Acceptable Review Blood Type A Positive Antibody Screen NEGATIVE OB - PN: A/P Delivery Assessment and Plan (1) Thin meconium stained amniotic fluid: Status: Deleted (2) Status post primary low transverse section: Status: Acute Assessment and Plan: 1. Continue postoperative care. 2. No evidence of postoperative anemia with a quantitative blood loss of 1100 mL. 3. Repeat CBC with differential tomorrow morning. (3) Chorioamnionitis, delivered, current hospitalization: Status: Acute Assessment and Plan: 1. 1 additional dose of ampicillin, gentamicin and clindamycin. 2. Monitor fever profile and if she spikes another fever would recommend urine culture, blood culture x2 and restart antibiotics until the patient is without a fever for at least 24 hours. 3. CBC with differential tomorrow morning.
[2025-03-17] MEDS: FERROUS SULFATE 325 MG TABLET PO ×2 (09:30→15:12)
[2025-03-17 17:18] LABS: Rapid Plasma Reagin (RPR) Reactive (Non Reactive)
[2025-03-17] MEDS: SODIUM CHLORIDE 0.9% IVPB (23:11)
[2025-03-17] MEDS: GENTAMICIN IVPB (23:11)
[2025-03-18] VITALS (8 sets, daily range): BP systolic 104–119; BP diastolic 69–82; PULSE 68–112; RESP 14–18; TEMP 36.8–37.1; O2SAT 97–99
[2025-03-18] MEDS: KETOROLAC 30 MG/ML inj IVP ×2 (03:38→12:15)
[2025-03-18 05:15] LABS: Basophils Percent Auto 0.1 % (0.0-3.0); Eosinophils Percent Auto 0.1 % (0.0-7.0); Hematocrit 26.6 % (33.0-51.0); Hemoglobin* 9.1 gm/dL (12.0-16.0); Immature Granulocytes Pct Auto 0.5 %; Lymphocytes Percent Auto 4.2 % (20-44); Mean Corpuscular HGB Conc 34 gm/dL (32-36); Mean Corpuscular Hemoglobin 31 pg (26-34); Mean Corpuscular Volume 91 fL (80-100); Monocytes Percent Auto 3.9 % (0.0-11.0); Neutrophils Percent Auto 91.2 % (42.0-72.0); Platelet Count* 128 K/uL (140-440); RDW Coefficient of Variation % 13.1 % (11.5-15.5); Red Blood Count 2.94 m/uL (4.00-5.20); White Blood Count* 23.86 K/uL (4.50-11.00)
[2025-03-18 05:18] LABS: Slide Review Reflex No
--- NOTE | 2025-03-18 07:30 | P.OBPN_ITS ---
OB - PN:Subj Subjective Date Seen: 03/18/25 Narrative: Hortensia is a 35 year old G1 now P1001 who was admitted for IOL for SROM post- term. She proceeded to have an unplanned primary ? with Hysterotomy extension downward from the right hysterotomy angle, leading to intraoperative hemorrhage of 1100 mL. She was also diagnosed with chorioamnionitis and was treated with antibiotics for 24 hours post procedure. The patient feels well.? The pain is controlled with current medications.? She has no new complaints.? Urinary output is adequate, but she was unable to void last night after the catheter was removed. It was replaced for the night.? Has a good appetite, is tolerating a general diet, is passing flatus, and has not had a bowel movement.? Has scant amount of rubra lochia.? She is ambulating. She is and reports she would like more assistance with that. Cynthia MARIE is made aware. OB - PN: Obj Exam Physical Exam: Vital signs: Temp Pulse Resp BP Pulse Ox O2 Del Method 97.6 F 84 16 104/78 98 Room Air 03/17/25 18:30 03/18/25 03:40 03/18/25 03:40 03/18/25 03:40 03/18/25 05:00 03/17/25 21:11 Narrative: GENERAL APPEARANCE:? normal affect, alert, no distress MOOD:? appropriate CHEST:? clear to auscultation HEART:? regular rate and rhythm ABDOMEN:? soft, non-tender the uterine fundus is At Umbilicus, Midline and is appropriate for the stage of recovery. EXTREMITIES:? normal and mild edema Incision: Surgical dressing intact with no abnormal discharge or erythema surrounding it. Hgb 9.1 this morning. Stable. Platelet count: 128. Stable Normotensive and afebrile. OB - PN: Obj Data Labs Labs: Laboratory Results - last 24 hr 03/15/25 03/17/25 03/18/25 23:41 07:05 05:10 WBC 29.77 H* 23.86 H RBC 3.57 L 2.94 L Hgb 11.0 L 9.1 L Hct 31.8 L 26.6 L MCV 89 91 MCH 31 31 MCHC 35 34 RDW Coeff of Sarina 12.7 13.1 Plt Count 135 L 128 L Neut % (Auto) 93.4 H 91.2 H Lymph % (Auto) 1.7 L 4.2 L [place] % (Auto) 3.8 3.9 Eos % (Auto) 0.0 0.1 Baso % (Auto) 0.0 0.1 Neut # (Auto) 27.80 H 21.80 H Lymph # (Auto) 0.50 L 1.00 [place] # (Auto) 1.10 H 0.90 Eos # (Auto) 0.00 0.00 Baso # (Auto) 0.00 0.00 Abs Immat Gran (auto) 0.30 0.10 Imm/Tot Granulo (auto) 1.1 0.5 Diff Slide Review Acceptable Review RPR Titer 1:1 H RPR Screen Reactive A OB - PN: A/P Delivery Assessment and Plan (1) Status post primary low transverse section: Status: Acute (2) care and examination of lactating mother: Status: Acute (3) Thin meconium stained amniotic fluid: Status: Deleted (4) Chorioamnionitis, delivered, current hospitalization: Status: Acute (5) hemorrhage: Problem details: QBL 1100 Status: Acute (6) Low platelet count: Status: Acute Plan Comments: PP day #1 Routine care Initiate iron QOD today for at least a couple of weeks to aid in recovery. RN to remove surgical dressing today per routine and take urinary catheter out when convenient. May see Anticipate discharge 03/19/2025 or 03/20/2025 as appropriate. Abdominal binder as desired.
[2025-03-18] MEDS: ACETAMINOPHEN 500 MG TABLET 1000 MG PO ×3 (07:35→22:00)
[2025-03-18 08:31] LABS: Treponema pallidum AbTP-PA Non Reactive (Non Reactive)
[2025-03-18] MEDS: DOCUSATE SODIUM 100 MG CAPSULE PO (09:42)
[2025-03-18] MEDS: SIMETHICONE 80 MG TAB.CHEW PO ×2 (15:28→22:00)
[2025-03-18] MEDS: IBUPROFEN 600 MG TABLET PO (16:34)
[2025-03-19] MEDS: IBUPROFEN 600 MG TABLET PO ×3 (01:05→13:55)
[2025-03-19 05:30] VITALS: BP 113/76; PULSE 87; RESP 18; TEMP 36.5
[2025-03-19] MEDS: ACETAMINOPHEN 500 MG TABLET 1000 MG PO ×2 (05:30→11:31)
[2025-03-19 06:37] LABS: Basophils Percent Auto 0.1 % (0.0-3.0); Eosinophils Percent Auto 0.4 % (0.0-7.0); Hematocrit 24.2 % (33.0-51.0); Hemoglobin* 8.3 gm/dL (12.0-16.0); Immature Granulocytes Pct Auto 1.8 %; Lymphocytes Percent Auto 8.5 % (20-44); Mean Corpuscular HGB Conc 34 gm/dL (32-36); Mean Corpuscular Hemoglobin 31 pg (26-34); Mean Corpuscular Volume 91 fL (80-100); Monocytes Percent Auto 5.5 % (0.0-11.0); Neutrophils Percent Auto 83.7 % (42.0-72.0); Platelet Count* 162 K/uL (140-440); RDW Coefficient of Variation % 13.2 % (11.5-15.5); Red Blood Count 2.66 m/uL (4.00-5.20)
[2025-03-19 06:45] LABS: Slide Review Reflex No
--- NOTE | 2025-03-19 07:48 | PM.OBPNVD1 ---
OB - PN:Subj Subjective Date Seen: 03/19/25 Narrative: Hortensia is a 35 y.o. G 1 P 1 who was admitted to [facility] for PROM post-dates. ?She had a section that was complicated by chorio and PPH. She was treated with antibiotics x 24 hours post delivery. She has been afebrile since 03/17 46. The patient feels okay, just tired and sore. ?The pain is being managed with tylenol and ibuprofen but she reports having more tenderness on her left side and increased pain in the last 24 hours. She is encouraged to utilize cold therapy and oxycodone for better pain control. ?She has no new complaints. ?She is breast feeding and reports things are going well. the patient has done well.? Vitals have been stable.? She has remained afebrile.? Has a good appetite, is tolerating a general diet. ?She is voiding without difficulty.? She is passing gas and has not had a bowel movement.? She is ambulating and denies any dizziness.? Has small amount of rubra lochia. She has considered discharge today but is uncertain about this. She is aware she can stay until tomorrow for pain management/support. Problems: pain OB - PN: Obj Exam Physical Exam: Vital signs: Temp Pulse Resp BP Pulse Ox O2 Del Method 97.7 F 87 18 113/76 97 Room Air 03/19/25 05:30 03/19/25 05:30 03/19/25 05:30 03/19/25 05:30 03/18/25 16:30 03/19/25 05:30 Narrative: GENERAL APPEARANCE:? normal affect, alert, no distress MOOD:? appropriate CHEST:? clear to auscultation HEART:? regular rate and rhythm ABDOMEN:? soft, mild diffusely tender abdomen, the uterine fundus is at Umbilicus, Midline and is appropriate for the stage of recovery. EXTREMITIES:? normal and no edema INCISION: Healing well, no surrounding erythema, abnormal induration or discharge OB - PN: Obj Data Labs Labs: Laboratory Results - last 24 hr 03/15/25 03/19/25 23:41 06:21 WBC 15.80 H RBC 2.66 L Hgb 8.3 L Hct 24.2 L MCV 91 MCH 31 MCHC 34 RDW Coeff of Sarina 13.2 Plt Count 162 Neut % (Auto) 83.7 H Lymph % (Auto) 8.5 L [place] % (Auto) 5.5 Eos % (Auto) 0.4 Baso % (Auto) 0.1 Neut # (Auto) 13.20 H Lymph # (Auto) 1.30 [place] # (Auto) 0.90 Eos # (Auto) 0.10 Baso # (Auto) 0.00 Abs Immat Gran (auto) 0.30 Imm/Tot Granulo (auto) 1.8 T.pallidum Ab (TP-PA) Non Reactive OB - PN: A/P Delivery Assessment and Plan (1) Status post primary low transverse section: Status: Acute (2) care and examination of lactating mother: Status: Acute (3) Chorioamnionitis, delivered, current hospitalization: Status: Acute (4) hemorrhage: Problem details: QBL 1100 Status: Acute Plan day: 2 Plan: routine care Comments: Anticipate discharge tomorrow. Routine post-op care. , may see if needed? Hgb 8.3. Iron supplement ordered orally every other day? Chorio. Stable WBC's, improved significantly from yesterday. Afebrile x 48 hours. Tender abdomen likely related to tender uterus.
[2025-03-19] MEDS: FERROUS SULFATE 325 MG TABLET PO (07:58)
[2025-03-19] MEDS: DOCUSATE SODIUM 100 MG CAPSULE PO (07:58)
[2025-03-19] MEDS: OXYCODONE 5 MG TABLET PO ×2 (07:59→12:59)
[2025-03-19 08:00] VITALS: BP 114/71; PULSE 86; RESP 18; TEMP 36.5; O2SAT 95
--- NOTE | 2025-03-19 14:41 | PM.OBDSVD1 ---
DS: Providers Provider Time Seen by Provider: 14:30 Date Seen: 03/19/25 Date of admission: 03/15/25 23:18 Primary care physician: Not a Local Provider Admitting Clinician: Kanchan Lozoya CNM Consults: 03/17/25 00:17 Consult to Physician [CONS] Routine Comment: Consulting Provider: Cari Barahona Has provider been notified: Yes Attending Physician on discharge: Theresa Vergara CNM DS: Diagnosis Discharge Diagnosis (1) care and examination of lactating mother: Status: Acute (2) hemorrhage: Status: Acute Problem details: QBL 1100 (3) Chorioamnionitis, delivered, current hospitalization: Status: Acute (4) Status post primary low transverse section: Status: Acute Exam Narrative: Exam Narrative: See document from luis miguelnikki today. Const: Vital Signs, click to edit/add: Vital Signs - 24 hr 03/18/25 16:30 03/18/25 21:35 03/19/25 05:30 Temperature 98.4 F 98.4 F 97.7 F Pulse Rate [Pulse Oximeter] 112 H 97 87 Respiratory Rate 16 16 18 Blood Pressure [Le ft Arm] 115/71 119/82 113/76 Pulse Oximetry 97 Oxygen Delivery Me thod Room Air Room Air Room Air 03/19/25 08:00 Temperature 97.7 F Pulse Rate [Pulse Oximeter] 86 Respiratory Rate 18 Blood Pressure [Le ft Arm] 114/71 Pulse Oximetry 95 Oxygen Delivery Me thod Room Air Documenting provider has reviewed patient's vital signs: yes OB - DS: Summary Hospital Course Hospital Course: Please refer to Rounding note from earlier today. Patient reported pain had improved significantly when she started taking oxycodone and desires to go home. Stable for discharge. Peripartum Data Infant delivery method: Primary C/S; Labored Procedures: Procedures Operation Date: 03/17/25 02:00 <No data on this case meets the specified criteria> Operation Date: 03/17/25 02:00 Actual Procedure Side Surgeon p Section Not Applicable Cari Barahona MD complications: none Gender: Male Discharge Plan: Home Status at Discharge Functional status at discharge: independent ambulation Overall status at discharge: patient is progressing back to baseline Time Spent with Patient Time attestation: Total time spent providing and/or coordinating discharge services: Time spent: Less than 30 minutes Discharge Plan Discharge Disposition: Home, Self-Care Date of Admission: 03/15/25 23:18 Attending Provider on Discharge: Theresa Vergara Consulting Providers: Cari Barahona Primary Care Provider: Provider,Not a Local Condition: Stable Anticipated Discharge Date/Time: 03/19/25 14:42 Discharge Medications: New acetaminophen 500 mg Tablet 1,000 mg PO Q6H PRN (Reason: Pain) Qty: 0 0RF ferrous sulfate 325 mg (65 mg iron) Tablet 325 mg PO Q48H Qty: 60 0RF docusate sodium 100 mg Capsule 100 mg PO DAILY Qty: 90 0RF ibuprofen 600 mg Tablet 600 mg PO Q6H PRN (Reason: Pain) Qty: 60 0RF oxycodone 5 mg Tablet 5 - 10 mg PO Q4H PRN (Reason: Pain) Qty: 15 0RF Continued [id number] 3-fat com #1 27-1-300 mg capsule 1 cap PO DAILY psyllium husk [Daily Fiber] 0.4 gram capsule 0.4 g PO ONCE PRN Discharge Orders: Discharge Order (Routine); Ordered 03/19/25 Ordered By: Theresa Vergara Patient Education: OB Over the Counter Medication Information, OB /Breast Feeding Additional Instructions: Discharge instructions were reviewed with the patient including signs and symptoms of infection and home going medications Lifting Restrictions: 20 pounds for 6 weeks No not submerge incision under water X 2 weeks? Nothing vaginally for 6 weeks: no tampons or intercourse Do not drive while taking narcotic pain medication(s) Off Work or School for 8 weeks. Her [employer] [employer] allows for 10 weeks. I feel this is appropriate based on complications of delivery. 2-week visit: incision check, discuss feeding concerns, review control options and screen for anxiety/depression. 6-week visit for an annual exam. consultation services are available to all mothers and babies for the first year after delivery.? To make an appointment, please call [phone]. Activity Level: Activity as Tolerated Discharge Diet: Regular Follow Up Appointments: [facility] [Provider Group] Forms: [employer] Info Instructions
[2025-03-19 15:30] VITALS: BP 107/70; PULSE 86; RESP 18; TEMP 36.5; O2SAT 96
== END 2025-03-19 15:45 | disposition home or self-care (01) | DRG 786 ==
LOC: OB OUT 23:19 → OB 23:19
PROVIDERS: Obstetrics & Gynecology; Admitting Provider Midwife; Visit Provider Obstetrics & Gynecology
PROC: (CPT 59514; principal; 2025-03-17 02:00)
DX: O42.12 Full-term premature rupture of membranes, onset of labor more than 24 hours following rupture (principal); O41.1230 Chorioamnionitis, third trimester, not applicable or unspecified; O72.1 Other immediate postpartum hemorrhage; O99.12 Other diseases of the blood and blood-forming organs and certain disorders involving the immune mechanism complicating childbirth; Z3A.41 41 weeks gestation of pregnancy; Z37.0 Single live birth; O76 Abnormality in fetal heart rate and rhythm complicating labor and delivery; O28.3 Abnormal ultrasonic finding on antenatal screening of mother; Z87.42 Personal history of other diseases of the female genital tract; G43.909 Migraine, unspecified, not intractable, without status migrainosus; D69.6 Thrombocytopenia, unspecified; O77.0 Labor and delivery complicated by meconium in amniotic fluid; O48.0 Post-term pregnancy; O62.1 Secondary uterine inertia; G89.18 Other acute postprocedural pain; O69.89X0 Labor and delivery complicated by other cord complications, not applicable or unspecified
CPT/HCPCS: 01967; 01968; 36415; 59200; 64488; 76942; 85018; 85025; 86592; 86593; 86780; 86850; 86900; 86901; 88307; 94761; 99140; G0463; A9270; J0290; J0456; J0665; J0666; J0736; J1100; J1580; J1885; J2210; J2274; J2371; J2405; J2590; J2765; J2795; J3010; J7050; J7120